=== PATIENT | female | born 1980 | race Caucasian/White ===

== ENCOUNTER 2016-12-21 11:05 | Outpatient (CLI) | payer OTHER ==
[~2016-12-21 11:05] MED LIST: BUPIVACAINE HCL/PF 2.5 MG/ML 10ML VIAL IV ONE; MIDAZOLAM HCL 2 MG/2 ML VIAL ONE; NORMAL SALINE 500 ML IV.SOLN IV ONE; SALINE FLUSH 10 ML DISP.SYRIN IVF ONE; TRIAMCINOLONE ACETONID 40MG/ML VIAL ONE; fentaNYL CITRATE/PF 100 MCG/ 2ML AMP ONE
--- NOTE | 2016-12-21 14:23 | LUMBAR FACET MBB ---
SUBJECTIVE: Tiffanie follows up with me today. This is a 36-year-old white female with left- sided back pain diagnosed with spondylosis. Plan for a left L3 through sacral ala facet medial branch blocks with fluoroscopic guidance with sedation. ANESTHESIA: IV sedation. OPERATIVE PROCEDURE: Left L3 through sacral ala facet medial nerve branch blocks with fluoroscopic guidance with sedation. DESCRIPTION OF PROCEDURE: The risks and benefits of the procedure were explained to the patient including the risk of infection, bleeding, and nerve injury. In addition, the risk of steroid exposure causing hyperglycemia, hypertension, osteoporosis, or increased infectious risks were explained to the patient. The patient understood these risks and agreed to proceed. The patient was placed in the prone position on the fluoroscopic procedure table with a pillow underneath the abdomen and IV sedation with nursing care was utilized. The back was cleaned. Sterile drapes were applied. Under AP, oblique, and lateral fluoroscopic imaging, the L3 vertebral body and L3 transverse process were identified on the left side. Following this, in an oblique fashion, a number 23-gauge spinal needle was advanced to the left L3 transverse process at the junction of the left superior articulating process and negative aspiration of blood or CSF was obtained. Following this, 0.25% of bupivacaine and triamcinolone was placed. In this exact same fashion, the left L4, L5, and left sacral ala were subsequently injected for a total of 4 level medial branch blocks. On completion of the procedure, the back was cleaned and a bandage was applied over the injection sites. The patient tolerated the procedure without complications. The patient was taken to the recovery room in good condition. The patient was monitored for 20 minutes following the procedure during which time the patient experienced no adverse sequelae. The patient was discharged to home in good condition. The patient was instructed to pay close attention to low back pain symptoms with activity over the next 6 hours, specifically performing normal activities which may usually exacerbate the low back pain complaints (in order to test the effect of the nerve blocks). ASSESSMENT: Lumbar facet arthropathy. FOLLOWUP: Return to clinic if problems develop or worsen. MARISSA
== END 2016-12-21 11:10 ==
LOC: OUT 11:05
PROVIDERS: ATTEND Anesthesiology Pain Medicine
DX: M47.816 Spondylosis without myelopathy or radiculopathy, lumbar region (principal)
CPT/HCPCS: J2250; J3010; J3301; J3490; J7060; 64493; 64494; 64495; 99214; S1016

== ENCOUNTER 2017-01-25 10:46 | Outpatient (CLI) | payer OTHER ==
[~2017-01-25 10:46] MED LIST changes: +BUPIVACAINE HCL/EPINEPHRINE/PF 0.25% VIAL IM ONE; -BUPIVACAINE HCL/PF 2.5 MG/ML 10ML VIAL IV ONE; +LIDOCAINE HCL/PF 2% 100 MG/5 ML VIAL IJ ONE; +Lidocaine 1% 5ml(IM or SUTURE)(PAIN CLINIC) ONE; -MIDAZOLAM HCL 2 MG/2 ML VIAL ONE; +PROPOFOL 500 MG/50 ML VIAL IV ONE; -fentaNYL CITRATE/PF 100 MCG/ 2ML AMP ONE
--- NOTE | 2017-01-26 09:15 | GENERIC FACET RF ---
SUBJECTIVE: Mrs. Coleman follows up today for left-sided back pain. She had immediate and better than 80% relief with facet medial branch block of L3, L4, L5, and sacral ala. She presents today for radiofreqency neurolysis at the same level. ANESTHESIA: Monitored anesthesia care for pain and anxiety. ANESTHESIOLOGIST: Hue Reed CRNA PROCEDURE: Left L3, L4, L5, and sacral ala lumbar facet radiofrequency neurolyses with fluoroscopic guidance (neurolyses of 4 medial nerve branches). DESCRIPTION OF PROCEDURE: The risks and benefits of the procedure were explained to the patient including the risk of infection, bleeding and unintended nerve injury, including the risk of radicular motor or sensory nerve injury and increased pain following the procedure. In addition, the risk of steroid exposure causing hyperglycemia, hypertension, osteoporosis, and increased infectious risks were explained to the patient. The patient understood these risks and agreed to proceed. The patient was placed in the prone position on the fluoroscopy table. The low back was cleaned and sterile drapes were applied. AP, lateral and oblique fluoroscopic views were obtained of the lumbar spine. An oblique fluoroscopic view was obtained of the left L3 vertebral body and transverse process. A 10 centimeter RFK introducer needle with a 10 mm active tip was advanced under direct fluoroscopic guidance until the tip of the introducer needle was located parallel to the medial branch of the posterior nerve root supplying the facet joint. This location was at the junction of the left transverse process of L3 with the superior articulating process. It was verified that there was no aspiration of CSF or blood from the needle tip. AP and lateral fluoroscopic views were obtained to verify the position of the needle as located at the junction of the transverse process and superior articulating process and to verify that the needle tip was not located within the epidural or intrathecal space. A 10 centimeter RFK radiofrequency probe was then introduced via the introducer needle and a 2 Hz stimulus was effected, gradually increasing the voltage to 2.5 volts, to verify that there was no motor neuron activation causing significant muscle contraction in the lower extremity or back. The probe was then removed from the introducer needle. Triamcinolone acetate, 1% lidocaine, and 0.25% bupivacaine with epinephrine was then injected through the introducer needle. The probe was reintroduced into the needle. A radiofrequency lesion was then effected at a temperature of 80 degrees for a period of 60 seconds. The needle was then rotated 180 degrees and withdrawn approximately 3 mm and a second lesion was effected for a period of 60 seconds at a temperature of 80 degrees C. The stylet was replaced in the introducer needle and the introducer was removed from the back. This exact procedure was repeated at the following levels: L4, L5, and sacral ala (for a total of 4 medial branch neurolyses). Bandages were applied over the injection sites. The patient was monitored for 20 minutes following the injection, during which time the patient experienced no adverse sequelae. The patient was discharge home in good condition with a vibratory pile driver driving the patient home. ASSESSMENT: Lumbar spondylosis/facet arthropathy. PLAN: Left L3, L4, L5, and sacral ala lumbar facet radiofrequency neurolyses with fluoroscopic guidance (neurolyses of 4 medial nerve branches). FOLLOWUP: Return to clinic if problems develop or worsen. MARISSA
== END 2017-01-25 10:47 ==
LOC: OUT 10:46
PROVIDERS: ATTEND Anesthesiology Pain Medicine
DX: M47.817 Spondylosis without myelopathy or radiculopathy, lumbosacral region (principal)
CPT/HCPCS: J2001; J2704; J3301; J7060; 64493; 64494; 99214; S1016